=== PATIENT | male | born 1980 | race Caucasian/White ===

== ENCOUNTER 2021-03-19 02:20 | Emergency (ER) | payer OTHER ==
[2021-03-19 02:26] VITALS: BP 157/91; PULSE 82; RESP 18; TEMP 97.6
--- NOTE | 2021-03-19 02:36 | ED ---
Medical Clearance HPI - General Chief complaint: Medical Clearance Stated complaint: [facility] Clearance Time Seen by Provider: 03/19/21 02:35 Source: patient, police Mode of arrival: ambulatory - History of Present Illness Initial comments: 41yo with no complaints presenting for [facility] clearance. pt states that he was "taking a quick nap" after getting gas. 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 they state he has been cooperative. pt denies complaints, they need [facility] clearance and lab draw for ETOH/drug. Patient agreeable and consents to this testing. Allergies/Adverse reactions: Allergies Allergy/AdvReac Type Severity Reaction Status Date / Time No Known Allergies Allergy Verified 03/19/21 02:27 Review of Systems ROS Statement: Those systems with pertinent positive or pertinent negative responses have been documented in the HPI. ROS Other: All systems not noted in ROS Statement are negative. Past Medical History Past Medical History: Chest Pain / Angina History of Any Multi-Drug Resistant Organisms: None Reported Past Surgical History: No Surgical Hx Reported Additional Past Surgical History / Comment(s): chronic back pain Past Psychological History: No Psychological Hx Reported Smoking Status: Current every day smoker Past Alcohol Use History: Occasional Past Drug Use History: None Reported General Exam - General Exam Comments Initial Comments: General: The patient is awake and alert, in no distress Eye: +3 mm pupils are equal, round and reactive to light, extra-ocular movements are intact. No nystagmus. There is normal conjunctiva bilaterally. No signs of icterus. Ears, nose, mouth and throat: There are moist mucous membranes and no oral lesions. Neck: The neck is supple, there is no tenderness or JVD. Cardiovascular: There is a regular rate and rhythm. No murmur, rub or gallop is appreciated. Respiratory: Lungs are clear to auscultation, respirations are non-labored, breath sounds are equal. No wheezes, stridor, rales, or rhonchi. Gastrointestinal: Soft, non-distended, non-tender abdomen without masses or organomegaly noted. There is no rebound or guarding present. Musculoskeletal: Normal ROM, no tenderness. Strength 5/5. Sensation intact. Radial pulses equal bilaterally 2+. Neurological: A&O x 3. CN II-XII intact grossly, There are no obvious motor or sensory deficits. Coordination appears grossly intact. Speech is normal. Skin: Skin is warm and dry and no rashes or lesions are noted. Psychiatric: Cooperative Limitations: no limitations Course Vital Signs 03/19/21 02:22 Temperature 97.6 F Pulse Rate 82 Respiratory 18 Rate Blood Pressure 157/91 O2 Sat by Pulse 99 Oximetry Medical Decision Making - Medical Decision Making Pt appears well, not altered, answering questions appropriately, steady gait. pt had lab testing performed (warrant draw). Cleared for [facility]. Disposition Clinical Impression: Encounter for medical assessment Disposition: OTHER INSTITUTION NOT DEFINED Condition: Stable Is patient prescribed a controlled substance at d/c from ED?: No Referrals: None,Stated [Primary Care Provider] - 1-2 days Time of Disposition: 02:36 - Out of Hospital Transfer - Req. Specs Out of Hospital Transfer - Requested Specifics: Other Non-Acute (SENIOR CARE)
== END 2021-03-19 02:54 | disposition other institution (70) ==
LOC: EC 02:20
DX: Z00.8 Encounter for other general examination (principal); F17.200 Nicotine dependence, unspecified, uncomplicated
CPT/HCPCS: 99284